=== PATIENT | female | born 1945 | race Caucasian/White ===

== ENCOUNTER → 2018-01-31 | Outpatient (CLI) | payer OTHER | LOC: BHFA 11:00 | PROVIDERS: ATTEND Internal Medicine Cardiovascular Disease | DX: I49.3 Ventricular premature depolarization (principal) ==

== ENCOUNTER 2018-02-21 09:03 | Inpatient (IN) | payer OTHER ==
--- NOTE | 2018-02-21 10:54 | PDCARPN ---
Cardiology Progress Note Chief Complaint: PVC's Assessment/Plan: Assessment: PVC's not responsive to Beta Blockers or Calcium Channel Blockers. She was seen by Michael Espinosa MD 02/09/18 with plan for Sotalol Load She has an Ablation tentatively scheduled for later in January. Her Holter Monitor showed frequent PVC's more than 13,000 in 24 hrs. She has 2 PVC morphologies: One typical outflow tract morphology and the second one is superior axis. If she fails Sotalol therapy, the plan is to move forward with ablation. She feels well today, with no new complaints. Plan: Initiate Sotalol therapy 02/21/18 10:54 Subjective: Feels well today. Reviewed/Discussed With: multidisciplinary team Time Spent With Patient: 30 minutes Objective: Vital Signs (8 Hrs) Temp Pulse Resp BP Pulse Ox 02/21/18 09:51 36.6 C 86 18 137/102 H 94 Intake/Output (24 Hrs) 02/20/18 02/21/18 02/22/18 05:59 05:59 05:59 Other: Weight 80.5 kg - Physical Exam Constitutional: WDWN, no apparent distress Cardiovascular: no murmurs, no rubs, no gallops, irregularly irregular Peripheral Pulses: 2+: dorsalis-pedis (R), dorsalis-pedis (L) Respiratory: clear to auscultate bilat, no crackles, no wheezes Gastrointestinal: normoactive bowel sounds, no tenderness Skin: no rashes, no edema Neurologic: AAOx3 Psychiatric: cooperative, interactive ICD10 Worksheet Patient Problems: Problems Problem Status Onset PVC (premature ventricular contraction) Acute Atrial fibrillation or flutter Acute
[2018-02-21 11:17] LABS: PLATELET COUNT 269 10^3/uL (150-400)
--- NOTE | 2018-02-21 11:21 | PDMN ---
Medical Necessity Medical necessity: est los>2mn for PVC's,> [id number] in 24 hrs per holter w/2 PVC morphologies, unresponsive to beta blockers and Ca+ channel blockers; admit for initiation of Sotalol therapy, ablation if this falis; per order and progress note 02/21/18
[2018-02-21 11:26] LABS: INR 1.85 (0.83-1.16); PROTIME(PATIENT) 21.4 SEC (12.0-15.0)
--- NOTE | 2018-02-21 11:48 | CPEKG ---
Heart Rate: 100 RR Interval: 600 P-R Interval: 172 QRSD Interval: 84 QT Interval: 364 QTC Interval: 470 P [place]: 73 QRS [place]: 44 T Wave [place]: 80 EKG Severity - ABNORMAL ECG - EKG Impression: SINUS TACHYCARDIA EKG Impression: VENTRICULAR BIGEMINY EKG Impression: LOW VOLTAGE IN FRONTAL LEADS EKG Impression: BORDERLINE T ABNORMALITIES, ANT-LAT LEADS EKG Impression: BIGEMINY IS NEW IN COMPARISON TO PRIOR Electronically Signed By: Migel Augustin 21-Feb-2018 12:26:21
[2018-02-21] MEDS: SOTALOL HCL 80 MG TAB PO SCH ×2 (15:00→23:59)
[2018-02-21] MEDS ORDERED: ACETAMINOPHEN 500 MG TAB PO PRN (17:55)
[2018-02-21] MEDS ORDERED: NON-FORMULARY NEW DRUG (Melatonin [Melatonin 5 Mg] 5 MG) PO PRN (17:55)
--- NOTE | 2018-02-21 17:57 | CPEKG ---
Heart Rate: 61 RR Interval: 984 P-R Interval: 176 QRSD Interval: 82 QT Interval: 432 QTC Interval: 435 P [place]: 72 QRS [place]: 47 T Wave [place]: 75 EKG Severity - ABNORMAL ECG - EKG Impression: SINUS RHYTHM EKG Impression: VENTRICULAR BIGEMINY Electronically Signed By: Michael Espinosa 22-Feb-2018 07:19:47
[2018-02-21] MEDS: MELATONIN 3 MG TAB PO PRN (23:59)
[2018-02-21] MEDS: GLUCOSAMINE SULF 500 MG CAP PO SCH (23:59)
[2018-02-21] MEDS: CALCIUM CARBONATE 500 MG TAB PO SCH (23:59)
[2018-02-22 04:36] LABS: INR 1.26 (0.83-1.16)
--- NOTE | 2018-02-22 08:15 | CPEKG ---
Heart Rate: 63 RR Interval: 952 P-R Interval: 180 QRSD Interval: 84 QT Interval: 448 QTC Interval: 459 P [place]: 65 QRS [place]: 62 T Wave [place]: 77 EKG Severity - ABNORMAL ECG - EKG Impression: SINUS RHYTHM EKG Impression: VENTRICULAR TRIGEMINY EKG Impression: LOW VOLTAGE THROUGHOUT EKG Impression: BORDERLINE R WAVE PROGRESSION, ANTERIOR LEADS EKG Impression: BORDERLINE T ABNORMALITIES, ANT-LAT LEADS Electronically Signed By: Migel Augustin 22-Feb-2018 09:30:06
[2018-02-22] MEDS: SOTALOL HCL 80 MG TAB PO SCH ×2 (09:06→21:05)
[2018-02-22] MEDS: FUROSEMIDE 20 MG TAB PO SCH (09:07)
[2018-02-22] MEDS: CALCIUM CARBONATE 500 MG TAB PO SCH ×2 (09:07→21:05)
[2018-02-22] MEDS: LISINOPRIL 10 MG TAB PO SCH (09:07)
[2018-02-22] MEDS: GLUCOSAMINE SULF 500 MG CAP PO SCH ×2 (09:07→21:05)
[2018-02-22] MEDS: RIVAROXABAN 10 MG TAB PO SCH (09:07)
--- NOTE | 2018-02-22 11:07 | CPEKG ---
Heart Rate: 61 RR Interval: 984 P-R Interval: 180 QRSD Interval: 88 QT Interval: 436 QTC Interval: 440 P [place]: 71 QRS [place]: 71 T Wave [place]: 111 EKG Severity - ABNORMAL ECG - EKG Impression: SINUS RHYTHM EKG Impression: VENTRICULAR TRIGEMINY EKG Impression: NONSPECIFIC T ABNORMALITIES, LATERAL LEADS Electronically Signed By: Michael Espinosa 22-Feb-2018 12:01:23
--- NOTE | 2018-02-22 13:57 | PDCARPN ---
Cardiology Progress Note Assessment/Plan: Assessment: PVC's not responsive to Beta Blockers or Calcium Channel Blockers. She was seen by Michael Espinosa MD 02/09/18 with plan for Sotalol Load She has an Ablation tentatively scheduled for later in January. Her Holter Monitor showed frequent PVC's more than 13,000 in 24 hrs. She has 2 PVC morphologies: One typical outflow tract morphology and the second one is superior axis. If she fails Sotalol therapy, the plan is to move forward with ablation. She feels well today, with no new complaints. Plan: Initiate Sotalol therapy 02/21/18 10:54 02/22/18 13:53 She has been ambulating halls today with no dizziness. Yesterday after her first dose of Sotalol when walking the halls, she did feel brief lightheadedness. Her EKG this morning showed Trigeminy PVC's. The monitor at 1:50 shows Sinus rhythm with occasional PVC's. She feels she is tolerating the Sotalol well. Reviewed/Discussed With: multidisciplinary team Objective: Vital Signs (8 Hrs) Temp Pulse Resp BP Pulse Ox 02/22/18 11:30 36.7 C 62 16 134/66 H 91 L 02/22/18 09:05 36.6 C 68 18 157/81 H 94 Intake/Output (24 Hrs) 02/21/18 02/22/18 02/23/18 05:59 05:59 05:59 Intake Total 1500 Balance 1500 Intake: Oral (ml) 1500 Other: Weight 80.5 kg Intake Quantity Yes Sufficient Number of Voids Toilet 1 Result Diagrams: 02/21/18 11:00 02/22/18 03:41 - Physical Exam Constitutional: no apparent distress Cardiovascular: regular rate and rhythm, no murmurs Respiratory: clear to auscultate bilat, no crackles, no wheezes Skin: warm Neurologic: AAOx3 Psychiatric: cooperative, interactive ICD10 Worksheet Patient Problems: Problems Problem Status Onset PVC (premature ventricular contraction) Acute Atrial fibrillation or flutter Acute
--- NOTE | 2018-02-22 14:45 | ASMTCMCOM ---
CM Note CM Note Notes: 72yr old female admitted for Afib, Moderate MR, HTN, HLD. She is scheduled for an ablation. No discharge needs anticipated. Date Signed: 02/22/2018 02:44 PM Electronically Signed By:Fatemeh Camejo LCSW
[2018-02-22] MEDS: MELATONIN 3 MG TAB PO PRN (21:05)
--- NOTE | 2018-02-22 23:49 | CPEKG ---
Heart Rate: 60 RR Interval: 1000 P-R Interval: 184 QRSD Interval: 88 QT Interval: 480 QTC Interval: 480 P [place]: 36 QRS [place]: 55 T Wave [place]: 84 EKG Severity - BORDERLINE ECG - EKG Impression: SINUS RHYTHM EKG Impression: BORDERLINE T ABNORMALITIES, ANT-LAT LEADS Electronically Signed By: Michael Espinosa 23-Feb-2018 07:08:32
[2018-02-23] MEDS: CALCIUM CARBONATE 500 MG TAB PO SCH (09:37)
[2018-02-23] MEDS: FUROSEMIDE 20 MG TAB PO SCH (09:37)
[2018-02-23] MEDS: GLUCOSAMINE SULF 500 MG CAP PO SCH (09:37)
[2018-02-23] MEDS: RIVAROXABAN 10 MG TAB PO SCH (09:37)
[2018-02-23] MEDS: LISINOPRIL 10 MG TAB PO SCH (09:38)
[2018-02-23] MEDS: SOTALOL HCL 80 MG TAB PO SCH (09:39)
--- NOTE | 2018-02-23 11:25 | CPEKG ---
Heart Rate: 64 RR Interval: 938 P-R Interval: 180 QRSD Interval: 88 QT Interval: 492 QTC Interval: 508 P [place]: 34 QRS [place]: 53 T Wave [place]: 76 EKG Severity - BORDERLINE ECG - EKG Impression: SINUS RHYTHM EKG Impression: BORDERLINE T ABNORMALITIES, ANT-LAT LEADS EKG Impression: BORDERLINE PROLONGED QT INTERVAL Electronically Signed By: Michael Espinosa 23-Feb-2018 13:29:51
[2018-02-23 11:43] VITALS: BP 160/88
--- NOTE | 2018-02-23 12:28 | ASMTCMCOM ---
CM Note CM Note Notes: 02/23/2018 Case Management Note Met w/pt to discuss d/c needs. Pt lives with her Arjun [phone]. Her son Stone lives in [place] [phone]. There are no case management d/c needs identified d/t pt age, marital status and activity levels prior to admission. There are no PT or OT evals ordered at this time. Pt is independent in ADL's. Case Management d/c poc: independent. Case Management available if needs change. Date Signed: 02/23/2018 12:28 PM Electronically Signed By:Anne Alegria RN
--- NOTE | 2018-02-23 15:39 | ASDISCHSUM ---
Discharge Information Plan Status:Home with No Needs Medically Cleared to Leave:02/23/2018 Discharge Date:02/23/2018 CM D/C Disposition:Home, Routine, Self-Care ADT D/C Disposition:Home, Routine, Self-Care Projected Discharge Date:02/23/2018 Transportation at D/C:Family Discharge Delay Reason: Follow-Up Date:02/23/2018 Discharge Slot: Final Diagnosis:Afib, Moderate MR, HTN, HLD Placement Information Patient Contact Information Contact Name:RAMESH Relationship: Address:[address] [place] [address] [place] Alternate Phone: [facility]/Zip Code:[place] [address] Email: Financial Information Financial Class:Medicare Primary Plan Desc:MEDICARE INPATIENT Primary Plan Number:[id number] Secondary Plan Desc:[facility] Secondary Plan Number:[id number] Assessment Information LACE LACE Length of stay for Answers: 2 days current admission Acuity / Level of Answers: Yes Care: Did the patient have an inpatient admission? Comorbidities - select Answers: Other Notes: Afib, Moderate all that apply MR, HTN, HLD # of Emergency department Answers: 0 visits in the last 6 months Score: 6 Date Signed: 02/23/2018 03:38 PM Electronically Signed By:Anne Alegria RN [facility] CM Progress Note CM Note CM Note Notes: 72yr old female admitted for Afib, Moderate MR, HTN, HLD. She is scheduled for an ablation. No discharge needs anticipated. Date Signed: 02/22/2018 02:44 PM Electronically Signed By:Fatemeh Gilbert, [employer] [facility] CM Progress Note CM Note CM Note Notes: 02/23/2018 Case Management Note Met w/pt to discuss d/c needs. Pt lives with her Arjun [phone]. Her son Stone lives in [place] [phone]. There are no case management d/c needs identified d/t pt age, marital status and activity levels prior to admission. There are no PT or OT evals ordered at this time. Pt is independent in ADL's. Case Management d/c poc: independent. Case Management available if needs change. Date Signed: 02/23/2018 12:28 PM Electronically Signed By:Anne Alegria RN Intervention Information Intervention Type:*Incorrect Registration Date of Service:02/21/2018 11:09 AM Patient Type:Observation Staff Member:ULISSES Luna Susan Hours: Discipline: Severity: Comment:
--- NOTE | 2018-02-23 16:20 | GDS ---
[f rep st] DISCHARGE SUMMARY ADMISSION DIAGNOSES: 1. Premature ventricular contractions. 2. Planned sotalol loading. DISCHARGE DIAGNOSES: 1. Status post successful sotalol load. 2. Frequent premature ventricular contractions. HOSPITAL COURSE: This nice lady was brought into the hospital for sotalol loading due to frequent ep isodes of PVCs. These were very bothersome to her. Rating is 7 on a scale of 1-10. She had no sync opal episodes. She had not responded to previous medications. She had a cryo balloon ablation for a trial fibrillation 4 years ago and no subsequent atrial fibrillation. She has been tried on beta blo ckers and calcium channel blockers, and these were not found to be successful options for her. She w as admitted for sotalol loading and observation. She has tolerated the process well and at this time is ready for discharge. ALLERGIES: She is allergic to amoxicillin, bacitracin. MEDICATIONS: She will go home on sotalol 120 mg in the morning and 80 mg at bedtime, glucosamine sul fate 500 mg twice daily, Celebrex 200 mg Wednesday and , melatonin 5 mg at bedtime as needed, Xa relto 20 mg daily, herbal supplements daily, Tylenol extended release 500 mg 1 tablet every 6 hours a s needed, not to exceed 3 grams daily, Zestril 10 mg daily, Lasix 20 mg daily, calcium carbonate 500 mg twice daily. PHYSICAL EXAMINATION: VITAL SIGNS: On day of discharge: Blood pressure 152/77, heart rate 64, oxyg en saturation 95%. HEART: Rate regular. No murmurs, rubs, gallops. LUNGS: Clear to auscultation. No wheezes, rales, or rhonchi. EXTREMITIES: No peripheral edema. CONDITION ON DISCHARGE: At this time, she is stable for discharge. DIAGNOSTICS: Her EKG on 02/23/2018 at 11:00 a[address] was reviewed by Dr. Espinosa remotely. Heart rate 64, Q Tc 508, regular sinus rhythm. No PVCs noted. FOLLOWUP PLAN: She will follow up in office with an EKG and office visit in 1 week with Jovana peralta, nurse practitioner. This is scheduled for February 28 at 9:45. She is to notify us should she have any episodes of dizziness, lightheadedness, or unusual palpitations. At this time, she current ly is stable for discharge. /[id number]/MODL
[2018-02-23] MEDS ORDERED: SOTALOL HCL 80 MG TAB PO SCH (21:00)
[2018-02-24] MEDS ORDERED: SOTALOL HCL 80 MG TAB PO SCH (09:00)
== END 2018-02-23 15:10 | disposition home or self-care (01) | DRG 310 ==
LOC: F2W 09:03 → OBSVTOIN 10:45
PROVIDERS: ADMIT Internal Medicine Cardiovascular Disease; ATTEND Internal Medicine Cardiovascular Disease
PROC: 3E033RZ Introduction of Antiarrhythmic into Peripheral Vein, Percutaneous Approach (ICD-10-PCS; principal; 2018-02-21)
DX: I49.3 Ventricular premature depolarization (principal); I48.0 Paroxysmal atrial fibrillation

== ENCOUNTER → 2018-03-24 | Outpatient (CLI) | payer OTHER | LOC: BHFA 16:00 | PROVIDERS: ATTEND Internal Medicine Cardiovascular Disease | DX: I49.3 Ventricular premature depolarization (principal) ==